=== PATIENT | female | born 1975 | race African-American/Black ===

== ENCOUNTER 2017-01-15 22:40 | Emergency (ER) | payer MEDICAID, OTHER ==
[2017-01-16 00:06] VITALS: BP 141/95
[2017-01-16] MEDS ORDERED: KEFLEX PO ONE (04:01)
[2017-01-16] MEDS ORDERED: RIFADIN PO STA (04:01)
[2017-01-16] MEDS ORDERED: MOTRIN PO ONE (04:01)
[2017-01-16] MEDS ORDERED: ROXICODONE PO ONE (04:01)
--- NOTE | 2017-01-16 04:04 | Emergency Department Report ---
ED Lower Extremity HPI - General Chief Complaint: Animal Bite Stated Complaint: LEFT LEG OPEN WOUND/POSS INFECTION Time Seen by Provider: 01/16/17 03:52 Source: patient, RN notes reviewed Mode of arrival: Ambulatory Limitations: No Limitations - History of Present Illness Initial Comments: This is a 41-year-old female. She was previously unknown to me. The patient is currently breast-feeding. She presents to the ER with left lateral thigh redness, pain, swelling. It is located on the left proximal lateral thigh. There is no trauma. She is up-to-date with tetanus vaccinations. The pain is sharp and achy. It increases with palpation, decreases with rest. No mechanism of injury that she is previously aware of. MD Complaint: thigh injury -: Gradual, days(s) Injury: Thigh: Left Type of Injury: unknown Improves With: rest Worsens With: movement, palpation Associated Symptoms: swelling - Related Data Previous Rx's Medication Instructions Recorded Last Taken Type HYDROcodone/APAP 5-325 [[place] 1 - 2 each PO Q6HR PRN #14 tablet 07/29/14 Unknown Rx 5/325] Ibuprofen [Motrin 800 MG tab] 800 mg PO Q8H PRN #20 tablet 07/29/14 Unknown Rx Levofloxacin [Levaquin] 500 mg PO QDAY #7 tablet 07/29/14 Unknown Rx Amoxicillin/K Clav Tab [Augmentin 1 each PO Q12HR #14 tablet 05/07/15 Unknown Rx 500 MG TAB] Antipyrine/Benzocaine 10 ml OT TID #1 bottle 05/07/15 Unknown Rx [Antipyrine-Benzocaine Ear Drop] traMADol [Ultram] 50 mg PO Q6HR PRN #12 tablet 05/07/15 Unknown Rx Ibuprofen [Motrin 600 MG tab] 600 mg PO Q8H PRN #30 tablet 08/08/16 Unknown Rx Multivitamin with Iron 1 each PO DAILY #30 tablet 08/08/16 Unknown Rx [Multivitamins with Iron] oxyCODONE /ACETAMINOPHEN [Percocet 1 tab PO Q6HR PRN #30 tablet 08/08/16 Unknown Rx 5/325] Cephalexin [Keflex] 500 mg PO Q6HR #28 capsule 01/16/17 Unknown Rx Rifampin [Rifadin] 600 mg PO QDAY #7 cap 01/16/17 Unknown Rx Allergies Allergy/AdvReac Type Severity Reaction Status Date / Time No Known Allergies Allergy Verified 09/06/13 13:01 ED Review of Systems ROS: Stated complaint: LEFT LEG OPEN WOUND/POSS INFECTION Other details as noted in HPI Constitutional: denies: fever Eyes: denies: vision change ENT: denies: epistaxis Respiratory: denies: cough Cardiovascular: denies: chest pain Gastrointestinal: denies: abdominal pain Musculoskeletal: myalgia Skin: lesions Neurological: denies: weakness ED Past Medical Hx - Past Medical History Previous Medical History?: Yes Hx Hypertension: Yes (gestational) Hx Congestive Heart Failure: No Hx Diabetes: No Hx Deep Vein Thrombosis: No Hx Renal Disease: No Hx Sickle Cell Disease: No Hx Seizures: No Hx Asthma: No Hx COPD: No Hx HIV: No - Surgical History Past Surgical History?: Yes Additional Surgical History: x 2013. left first digit partial amputation - Social History Smoking Status: Never Smoker Substance Use Type: None - Medications Home Medications: Home Medications Medication Instructions Recorded Confirmed Last Taken Type HYDROcodone/APAP 5-325 [[place] 1 - 2 each PO Q6HR PRN #14 tablet 07/29/14 Unknown Rx 5/325] Ibuprofen [Motrin 800 MG tab] 800 mg PO Q8H PRN #20 tablet 07/29/14 Unknown Rx Levofloxacin [Levaquin] 500 mg PO QDAY #7 tablet 07/29/14 Unknown Rx Amoxicillin/K Clav Tab [Augmentin 1 each PO Q12HR #14 tablet 05/07/15 Unknown Rx 500 MG TAB] Antipyrine/Benzocaine 10 ml OT TID #1 bottle 05/07/15 Unknown Rx [Antipyrine-Benzocaine Ear Drop] traMADol [Ultram] 50 mg PO Q6HR PRN #12 tablet 05/07/15 Unknown Rx Ibuprofen [Motrin 600 MG tab] 600 mg PO Q8H PRN #30 tablet 08/08/16 Unknown Rx Multivitamin with Iron 1 each PO DAILY #30 tablet 08/08/16 Unknown Rx [Multivitamins with Iron] oxyCODONE /ACETAMINOPHEN [Percocet 1 tab PO Q6HR PRN #30 tablet 08/08/16 Unknown Rx 5/325] Cephalexin [Keflex] 500 mg PO Q6HR #28 capsule 01/16/17 Unknown Rx Rifampin [Rifadin] 600 mg PO QDAY #7 cap 01/16/17 Unknown Rx ED Physical Exam - General Limitations: No Limitations General appearance: alert, in no apparent distress - Head Head exam: Present: atraumatic, normocephalic - Eye Eye exam: Present: normal appearance, EOMI. Absent: nystagmus - ENT ENT exam: Present: normal exam, normal orophraynx, mucous membranes moist, normal external ear exam - Neck Neck exam: Present: normal inspection, full ROM. Absent: tenderness, meningismus - Respiratory Respiratory exam: Present: normal lung sounds bilaterally. Absent: respiratory distress, wheezes, rales, rhonchi, stridor, chest wall tenderness, accessory muscle use, decreased breath sounds, prolonged expiratory - Cardiovascular Cardiovascular Exam: Present: regular rate, normal rhythm, normal heart sounds. Absent: bradycardia, tachycardia, irregular rhythm, systolic murmur, diastolic murmur, rubs, gallop - GI/Abdominal GI/Abdominal exam: Present: soft, normal bowel sounds. Absent: distended, tenderness, guarding, rebound, rigid, pulsatile mass - Extremities Exam Extremities exam: Present: full ROM, tenderness (on the left lateral thigh, there is a well-circumscribed area of erythema, approximately 6 x 6 cm. It is indurated and tender. The compartments are soft. There is no palpable cords distally. 2+ pulses noted infarction. There is no fluctuance.), normal capillary refill. Absent: pedal edema, joint swelling, calf tenderness - Back Exam Back exam: Present: normal inspection, full ROM. Absent: tenderness, CVA tenderness (R), CVA tenderness (L), muscle spasm, paraspinal tenderness, vertebral tenderness - Neurological Exam Neurological exam: Present: alert, oriented X3, normal gait, other (Extraocular movements intact. Tongue midline. No facial droop. Facial sensation intact to light touch in the V1, V2, V3 distribution bilaterally. 5 and 5 strength in 4 extremities.. Sensation is intact to light touch in 4 extremities.). Absent : motor sensory deficit - Psychiatric Psychiatric exam: Present: normal affect, normal mood - Skin Skin exam: Present: warm, normal color, rash, erythema ED Course Vital Signs 01/16/17 00:01 Temperature 98.3 F Pulse Rate 90 Respiratory 20 Rate Blood Pressure 141/95 O2 Sat by Pulse 98 Oximetry - Reevaluation(s) Reevaluation #1: 01/16/17 04:25 differential diagnosis: Left lateral thigh cellulitis Assessment and plan: 41-year-old female with simple thigh cellulitis. Compartments are soft. No abscess clinically. Afebrile, tolerating liquid feeds, she is currently breast-feeding. The cellulitis is marked with a skin marker. The patient will be discharged with Keflex and rifampin. She is instructed to follow-up in 48-72 hours for a repeat examination. ED Lower Extremity MDM - Lab Data Vital Signs 01/16/17 00:01 Temperature 98.3 F Pulse Rate 90 Respiratory 20 Rate Blood Pressure 141/95 O2 Sat by Pulse 98 Oximetry Critical care attestation.: If time is entered above; I have spent that time in minutes in the direct care of this critically ill patient, excluding procedure time. ED Disposition Clinical Impression: Cellulitis of left thigh Disposition: DISCHARGED TO HOME OR SELFCARE Is pt being admited?: No Does the pt Need Aspirin: No Condition: Stable Instructions: Cellulitis (ED) Additional Instructions: Physical exam is suggestive of left lateral thigh infection/cellulitis. Apply warm compresses to the affected area. Take Tylenol every 4 hours, alternating with ibuprofen every 6 hours as needed for pain. Take the antibiotics as directed. Follow up in 48-72 hours for repeat physical examination. Return to the ER right away with new pain, worsened pain, migration of pain, streaking, fevers, intractable nausea or vomiting, inability to tolerate liquid feeds. At this point in time, the physical examination is not consistent with an abscess, and at this point in time does not require incision and drainage. Depending on how you do with antibiotics, you may require incision and drainage in the future. Referrals: TEOFILO WINKLER MD [Primary Care Provider] - 3-5 Days NITA SEGUNDO MD [Staff Physician] - 3-5 Days [facility] [Provider Group] - 3-5 Days
== END 2017-01-16 04:35 | disposition home or self-care (01) ==
LOC: ED 22:40
DX: L03.116 Cellulitis of left lower limb (principal)
CPT/HCPCS: 99281

== ENCOUNTER 2019-03-13 04:23 | Emergency (ER) | payer OTHER ==
[2019-03-13] MEDS ORDERED: IBUPROFEN PO ONE ×3 (04:34→04:44)
--- NOTE | 2019-03-13 05:13 | XRay Report ---
RIGHT FOOT 3 VIEWS INDICATION: Right foot pain after trauma. COMPARISON: No relevant prior imaging study available. FINDINGS: There is a minimally displaced fracture at the base of the fifth metatarsal. This is most likely an a vulsion-type fracture. No additional fractures are seen. No degenerative changes. No foreign bodies. IMPRESSION: 1. Minimally displaced fracture at the base of the fifth metatarsal. This is most likely an avulsion type mechanism. Signer Name: Kushal Eddy MD Signed: 03/13/2019 5:09 AM Workstation Name: [id number]
--- NOTE | 2019-03-13 08:22 | Emergency Department Report ---
ED Lower Extremity HPI - General Chief Complaint: Extremity Injury, Lower Stated Complaint: FOOT SWELLING Time Seen by Provider: 03/13/19 07:09 Source: patient Mode of arrival: Ambulatory Limitations: No Limitations - History of Present Illness Initial Comments: This is a 43-year-old female nontoxic, well nourished in appearance, no acute signs of distress presents to the ED with c/o of left foot pain 1 day. Patient stated that she tripped and fell onto foot yesterday. Patient denies any other trauma. Patient denies any numbness, tingling, fever, chills, nausea, vomiting, chest pain, shortness of breath, headache, stiff neck. Patient denies any joint swelling or joint redness. Patient denies decreased range of motion. Patient stated has decreased gait due to pain. Patient denies any allergies or significant past medical history. MD Complaint: foot injury -: days(s) (1) Injury: Foot: Left Place: home Severity: mild Severity scale (0 -10): 8 Improves With: immobilization Worsens With: weight bearing, movement, palpation Associated Symptoms: swelling, unable to bear weight. denies: snap/pop sensation, numbness, tingling, able to partially bear weight, ambulatory - Related Data Previous Rx's Medication Instructions Recorded Last Taken Type HYDROcodone/APAP 5-325 [[place] 1 - 2 each PO Q6HR PRN #14 tablet 07/29/14 Unknown Rx 5/325] Ibuprofen [Motrin 800 MG tab] 800 mg PO Q8H PRN #20 tablet 07/29/14 Unknown Rx levoFLOXacin [Levaquin] 500 mg PO QDAY #7 tablet 07/29/14 Unknown Rx Amoxicillin/K Clav Tab [Augmentin 1 each PO Q12HR #14 tablet 05/07/15 Unknown Rx 500 MG TAB] Antipyrine/Benzocaine 10 ml OT TID #1 bottle 05/07/15 Unknown Rx [Antipyrine-Benzocaine Ear Drop] traMADol [Ultram] 50 mg PO Q6HR PRN #12 tablet 05/07/15 Unknown Rx Ibuprofen [Motrin 600 MG tab] 600 mg PO Q8H PRN #30 tablet 08/08/16 Unknown Rx Multivitamin with Iron 1 each PO DAILY #30 tablet 08/08/16 Unknown Rx [Multivitamins with Iron] oxyCODONE /ACETAMINOPHEN [Percocet 1 tab PO Q6HR PRN #30 tablet 08/08/16 Unknown Rx 5/325] cephALEXin [Keflex] 500 mg PO Q6HR #28 capsule 01/16/17 Unknown Rx rifAMPin [Rifadin] 600 mg PO QDAY #7 cap 01/16/17 Unknown Rx Acetaminophen/Codeine [Tylenol 1 tab PO Q6H PRN #12 tab 03/13/19 Unknown Rx /Codeine # 3 tab] Ibuprofen [Motrin] 600 mg PO Q8H PRN #20 tablet 03/13/19 Unknown Rx Allergies Allergy/AdvReac Type Severity Reaction Status Date / Time No Known Allergies Allergy Verified 09/06/13 13:01 ED Review of Systems ROS: Stated complaint: FOOT SWELLING Other details as noted in HPI Constitutional: denies: chills, fever Eyes: denies: eye pain, eye discharge, vision change ENT: denies: ear pain, throat pain Respiratory: denies: cough, shortness of breath, wheezing Cardiovascular: denies: chest pain, palpitations Endocrine: no symptoms reported Gastrointestinal: denies: abdominal pain, nausea, diarrhea Genitourinary: denies: urgency, dysuria, discharge Musculoskeletal: denies: back pain, joint swelling, arthralgia Skin: denies: rash, lesions Neurological: denies: headache, weakness, paresthesias Psychiatric: denies: anxiety, depression Hematological/Lymphatic: denies: easy bleeding, easy bruising ED Past Medical Hx - Past Medical History Hx Hypertension: Yes (gestational) Hx Congestive Heart Failure: No Hx Diabetes: No Hx Deep Vein Thrombosis: No Hx Renal Disease: No Hx Sickle Cell Disease: No Hx Seizures: No Hx Asthma: No Hx COPD: No Hx HIV: No - Surgical History Additional Surgical History: x 2, 2013, 2015. left first digit partial amputation - Social History Smoking Status: Never Smoker - Medications Home Medications: Home Medications Medication Instructions Recorded Confirmed Last Taken Type HYDROcodone/APAP 5-325 [[place] 1 - 2 each PO Q6HR PRN #14 tablet 07/29/14 Unknown Rx 5/325] Ibuprofen [Motrin 800 MG tab] 800 mg PO Q8H PRN #20 tablet 07/29/14 Unknown Rx levoFLOXacin [Levaquin] 500 mg PO QDAY #7 tablet 07/29/14 Unknown Rx Amoxicillin/K Clav Tab [Augmentin 1 each PO Q12HR #14 tablet 05/07/15 Unknown Rx 500 MG TAB] Antipyrine/Benzocaine 10 ml OT TID #1 bottle 05/07/15 Unknown Rx [Antipyrine-Benzocaine Ear Drop] traMADol [Ultram] 50 mg PO Q6HR PRN #12 tablet 05/07/15 Unknown Rx Ibuprofen [Motrin 600 MG tab] 600 mg PO Q8H PRN #30 tablet 08/08/16 Unknown Rx Multivitamin with Iron 1 each PO DAILY #30 tablet 08/08/16 Unknown Rx [Multivitamins with Iron] oxyCODONE /ACETAMINOPHEN [Percocet 1 tab PO Q6HR PRN #30 tablet 08/08/16 Unknown Rx 5/325] cephALEXin [Keflex] 500 mg PO Q6HR #28 capsule 01/16/17 Unknown Rx rifAMPin [Rifadin] 600 mg PO QDAY #7 cap 01/16/17 Unknown Rx Acetaminophen/Codeine [Tylenol 1 tab PO Q6H PRN #12 tab 03/13/19 Unknown Rx /Codeine # 3 tab] Ibuprofen [Motrin] 600 mg PO Q8H PRN #20 tablet 03/13/19 Unknown Rx ED Physical Exam - General Limitations: No Limitations General appearance: alert, in no apparent distress - Head Head exam: Present: atraumatic, normocephalic - Extremities Exam Extremities exam: Present: full ROM, tenderness, normal capillary refill. Absent: joint swelling - Expanded Lower Extremity Exam Right Hip exam: Present: normal inspection, full ROM. Absent: tenderness, swelling Upper Leg exam: Present: normal inspection, full ROM. Absent: tenderness, swelling Knee exam: Present: normal inspection, full ROM. Absent: tenderness, swelling Lower Leg exam: Present: normal inspection, full ROM. Absent: tenderness, swelling Ankle exam: Present: full ROM, tenderness, swelling. Absent: abrasion, laceration, ecchymosis, deformity, crepidus, dislocation, erythema, anterior draw sign Foot/Toe exam: Present: full ROM, tenderness, swelling, ecchymosis. Absent: abrasion, laceration, deformity, crepidus, dislocation, erythema, amputation, puncture wound, foreign body, calcaneal tenderness, tenderness at base of 5th metatarsal, nail avulsion, subungual hematoma Neuro vascular tendon exam: Present: no vascular compromise Gait: Positive: unable to bear weight - Back Exam Back exam: Present: normal inspection, full ROM. Absent: tenderness, CVA tenderness (R), CVA tenderness (L), muscle spasm, paraspinal tenderness, vertebral tenderness, rash noted - Neurological Exam Neurological exam: Present: alert, oriented X3 - Psychiatric Psychiatric exam: Present: normal affect, normal mood - Skin Skin exam: Present: warm, dry, intact, normal color. Absent: rash - Other Other exam information: Negative Dumont test of right Achilles tendon. ED Course Vital Signs 03/13/19 03/13/19 04:26 04:30 Temperature 97.3 F L 97.3 F L Pulse Rate 72 72 Respiratory 18 18 Rate Blood Pressure 120/70 120/70 O2 Sat by Pulse 99 99 Oximetry - Reevaluation(s) Reevaluation #1: 03/13/19 08:21 Patient is speaking in full sentences with no signs of distress noted. Reevaluation #2: 03/13/19 08:26 Post splint assessment: neurovasular intact; normal cap refill <2 second; normal sensation; denies decreaed sensation; normal ROM of digits. ED Lower Extremity MDM - Medical Decision Making This is a 43-year-old female that presents with right foot fracture. Patient is stable and was examined by me. I referred patient to an orthopedic doctor for further evaluation for possible MRI. X-ray has been obtained and dictated by the radiologist. Patient is notified of the x-ray report with noted by the patient. Patient has no tenderness and no joint swelling. No ecchymosis. no joint redness or swelling. Not warm to touch. No signs of cellulites present. Patient received a posterior short leg splint and crutches and was educated by RN had a use crutches. Patient was instructed to RICE therapy. Patient received Motrin for pain. Patient is discharged with Motrin. At time of discharge, the patient does not seem toxic or ill in appearance. No acute signs of distress noted. Patient agrees to discharge treatment plan of care. No further questions noted by the patient. Critical care attestation.: If time is entered above; I have spent that time in minutes in the direct care of this critically ill patient, excluding procedure time. ED Disposition Clinical Impression: Foot fracture, right Qualifiers: Encounter type: initial encounter Fracture type: closed Qualified Code(s): S92.901A - Unspecified fracture of right foot, initial encounter for closed fracture Disposition: DC-01 TO HOME OR SELFCARE Is pt being admited?: No Does the pt Need Aspirin: No Condition: Stable Instructions: Acetaminophen/Codeine (By mouth), Crutch Instructions (ED), Foot Fracture in Adults (ED), Splint Care (ED), RICE Therapy (ED) Additional Instructions: Follow-up with a orthopedic doctor in 3-5 days or if symptoms worsen and continue return to emergency room as soon as possible. Do not operate any machinery while taking Tylenol with codeine as this may cause drowsiness. Prescriptions: Ibuprofen [Motrin] 600 mg PO Q8H PRN #20 tablet PRN Reason: Pain Acetaminophen/Codeine [Tylenol /Codeine # 3 tab] 1 tab PO Q6H PRN #12 tab PRN Reason: Pain , Severe (7-10) [facility]: [facility] ARNULFO [Primary Care Provider] - 3-5 Days PRIMARY CAREMD [Referring] - 3-5 Days BRIANNA LEIGH MD [Staff Physician] - 3-5 Days [facility] [Outside] - 3-5 Days Forms: Work/School Release Form(ED)
[2019-03-13 08:52] VITALS: BP 134/82
== END 2019-03-13 08:52 | disposition home or self-care (01) ==
LOC: ED 04:23
DX: S92.901A Unspecified fracture of right foot, initial encounter for closed fracture (principal); I10 Essential (primary) hypertension; Z79.899 Other long term (current) drug therapy; W01.0XXA Fall on same level from slipping, tripping and stumbling without subsequent striking against object, initial encounter; Y93.89 Activity, other specified; Y92.89 Other specified places as the place of occurrence of the external cause; Y99.8 Other external cause status

== ENCOUNTER 2019-03-22 06:24 | Emergency (ER) | payer SELFPAY ==
[2019-03-22 06:49] VITALS: BP 130/87
--- NOTE | 2019-03-22 08:53 | Emergency Department Report ---
ED General Adult HPI - General Chief complaint: Extremity Injury, Lower Stated complaint: RT FOOT INJURY Time Seen by Provider: 03/22/19 08:35 Source: patient Mode of arrival: Wheelchair Limitations: No Limitations - History of Present Illness Initial comments: 43-year-old female since the ED for evaluation of foot fracture. This was seen one week ago and diagnosed with a minimally displaced fracture of the base of the fifth metatarsal of the right foot. Splint was placed at that time. Patient was advised to follow up with ortho, however [facility] has been unable to due to finances. [facility] first appt at [facility] is in May. Patient requests that a cast be placed in ED, also request a refill on pain medications. -: week(s) (1) Location: right, lower extremity Quality: aching Consistency: intermittent Improves with: none Worsens with: none Associated Symptoms: denies other symptoms - Related Data Previous Rx's Medication Instructions Recorded Last Taken Type HYDROcodone/APAP 5-325 [[place] 1 - 2 each PO Q6HR PRN #14 tablet 07/29/14 Unknown Rx 5/325] Ibuprofen [Motrin 800 MG tab] 800 mg PO Q8H PRN #20 tablet 07/29/14 Unknown Rx levoFLOXacin [Levaquin] 500 mg PO QDAY #7 tablet 07/29/14 Unknown Rx Amoxicillin/K Clav Tab [Augmentin 1 each PO Q12HR #14 tablet 05/07/15 Unknown Rx 500 MG TAB] Antipyrine/Benzocaine 10 ml OT TID #1 bottle 05/07/15 Unknown Rx [Antipyrine-Benzocaine Ear Drop] traMADol [Ultram] 50 mg PO Q6HR PRN #12 tablet 05/07/15 Unknown Rx Ibuprofen [Motrin 600 MG tab] 600 mg PO Q8H PRN #30 tablet 08/08/16 Unknown Rx Multivitamin with [place] 1 each PO DAILY #30 tablet 08/08/16 Unknown Rx [Multivitamins with Iron] oxyCODONE /ACETAMINOPHEN [Percocet 1 tab PO Q6HR PRN #30 tablet 08/08/16 Unknown Rx 5/325] cephALEXin [Keflex] 500 mg PO Q6HR #28 capsule 01/16/17 Unknown Rx rifAMPin [Rifadin] 600 mg PO QDAY #7 cap 01/16/17 Unknown Rx Acetaminophen/Codeine [Tylenol 1 tab PO Q6H PRN #12 tab 03/13/19 Unknown Rx /Codeine # 3 tab] Ibuprofen [Motrin] 600 mg PO Q8H PRN #20 tablet 03/13/19 Unknown Rx Naproxen [Naprosyn] 500 mg PO BID #20 tablet 03/22/19 Unknown Rx traMADol [Ultram] 50 mg PO Q6HR PRN #10 tablet 03/22/19 Unknown Rx Allergies Allergy/AdvReac Type Severity Reaction Status Date / Time No Known Allergies Allergy Verified 09/06/13 13:01 ED Review of Systems ROS: Stated complaint: RT FOOT INJURY Other details as noted in HPI Comment: All other systems reviewed and negative Musculoskeletal: as per HPI ED Past Medical Hx - Past Medical History Previous Medical History?: Yes Hx Hypertension: Yes (gestational) Hx Congestive Heart Failure: No Hx Diabetes: No Hx Deep Vein Thrombosis: No Hx Renal Disease: No Hx Sickle Cell Disease: No Hx Seizures: No Hx Asthma: No Hx COPD: No Hx HIV: No - Surgical History Past Surgical History?: Yes Additional Surgical History: x 2, 2013, 2015. left first digit partial amputation - Social History Smoking Status: Never Smoker - Medications Home Medications: Home Medications Medication Instructions Recorded Confirmed Last Taken Type HYDROcodone/APAP 5-325 [[place] 1 - 2 each PO Q6HR PRN #14 tablet 07/29/14 Unknown Rx 5/325] Ibuprofen [Motrin 800 MG tab] 800 mg PO Q8H PRN #20 tablet 07/29/14 Unknown Rx levoFLOXacin [Levaquin] 500 mg PO QDAY #7 tablet 07/29/14 Unknown Rx Amoxicillin/K Clav Tab [Augmentin 1 each PO Q12HR #14 tablet 05/07/15 Unknown Rx 500 MG TAB] Antipyrine/Benzocaine 10 ml OT TID #1 bottle 05/07/15 Unknown Rx [Antipyrine-Benzocaine Ear Drop] traMADol [Ultram] 50 mg PO Q6HR PRN #12 tablet 05/07/15 Unknown Rx Ibuprofen [Motrin 600 MG tab] 600 mg PO Q8H PRN #30 tablet 08/08/16 Unknown Rx Multivitamin with [place] 1 each PO DAILY #30 tablet 08/08/16 Unknown Rx [Multivitamins with Iron] oxyCODONE /ACETAMINOPHEN [Percocet 1 tab PO Q6HR PRN #30 tablet 08/08/16 Unknown Rx 5/325] cephALEXin [Keflex] 500 mg PO Q6HR #28 capsule 01/16/17 Unknown Rx rifAMPin [Rifadin] 600 mg PO QDAY #7 cap 01/16/17 Unknown Rx Acetaminophen/Codeine [Tylenol 1 tab PO Q6H PRN #12 tab 03/13/19 Unknown Rx /Codeine # 3 tab] Ibuprofen [Motrin] 600 mg PO Q8H PRN #20 tablet 03/13/19 Unknown Rx Naproxen [Naprosyn] 500 mg PO BID #20 tablet 03/22/19 Unknown Rx traMADol [Ultram] 50 mg PO Q6HR PRN #10 tablet 03/22/19 Unknown Rx ED Physical Exam - General Limitations: No Limitations General appearance: alert, in no apparent distress - Head Head exam: Present: atraumatic, normocephalic - Eye Eye exam: Present: normal appearance - ENT ENT exam: Present: mucous membranes moist - Neck Neck exam: Present: normal inspection - Respiratory Respiratory exam: Present: normal lung sounds bilaterally. Absent: respiratory distress - Cardiovascular Cardiovascular Exam: Present: regular rate, normal rhythm - GI/Abdominal GI/Abdominal exam: Absent: distended - Extremities Exam Extremities exam: Present: other (splint in place to right foot and ankle) - Neurological Exam Neurological exam: Present: alert, oriented X3. Absent: motor sensory deficit - Psychiatric Psychiatric exam: Present: normal affect, normal mood - Skin Skin exam: Present: warm, dry, intact, normal color ED Course Vital Signs 03/22/19 06:42 Temperature 98.2 F Pulse Rate 84 Respiratory 20 Rate Blood Pressure 130/87 O2 Sat by Pulse 100 Oximetry ED Medical Decision Making - Radiology Data Radiology results: report reviewed, image reviewed - Medical Decision Making Outpatient follow-up is advised. - Differential Diagnosis fracture Critical care attestation.: If time is entered above; I have spent that time in minutes in the direct care of this critically ill patient, excluding procedure time. ED Disposition Clinical Impression: Fracture of metatarsal of right foot, closed Disposition: DC-01 TO HOME OR SELFCARE Is pt being admited?: No Condition: Stable Instructions: Foot Fracture in Adults (ED) Prescriptions: Naproxen [Naprosyn] 500 mg PO BID #20 tablet traMADol [Ultram] 50 mg PO Q6HR PRN #10 tablet PRN Reason: Pain Referrals: BRIANNA LEIGH MD [Primary Care Provider] - 3-5 Days [facility] [Provider Group] - 3-5 Days Time of Disposition: 08:53
--- NOTE | 2019-03-22 09:08 | XRay Report ---
RIGHT FOOT, 3 VIEWS INDICATION: Right foot pain, right foot was splinted 2 weeks ago. COMPARISON: 03/13/2019 IMPRESSION: A posterior splint has been applied which mildly degrades bony detail. The nondisplaced fracture at the base of the fifth metatarsal is unchanged in position and alignment since 03/13/2019. No calcified callus is appreciated at this time. The remaining bony structures are within normal limi ts. No joint pathology. There is moderate soft tissue swelling on the dorsum of the foot. Signer Name: Dalton Matos Jr, MD Signed: 03/22/2019 9:03 AM Workstation Name: [id number]
== END 2019-03-22 09:19 | disposition home or self-care (01) ==
LOC: ED 06:24
DX: S92.301A Fracture of unspecified metatarsal bone(s), right foot, initial encounter for closed fracture (principal); I10 Essential (primary) hypertension; Z79.1 Long term (current) use of non-steroidal anti-inflammatories (NSAID); Z79.899 Other long term (current) drug therapy; W22.8XXA Striking against or struck by other objects, initial encounter; Y93.89 Activity, other specified; Y92.488 Other paved roadways as the place of occurrence of the external cause; Y99.8 Other external cause status

== ENCOUNTER 2019-05-15 06:26 | Emergency (ER) | payer SELFPAY ==
--- NOTE | 2019-05-15 07:30 | XRay Report ---
RIGHT FOOT 3 VIEWS 0700 INDICATION: Right foot broken 2 months ago COMPARISON: 03/22/2019 FINDINGS: Images were obtained in a fiberglass splint. The previous fracture of the base of the fifth metatarsal is again noted with bone resorption along the fracture line rather than obvious healing. Possibly there is a small amount of union but a large amount of nonunion is seen. The fragment is mil dly distracted proximally. No new fractures or dislocations are seen. Signer Name: Josh Reynolds MD Signed: 05/15/2019 7:25 AM Workstation Name: [id number]
[2019-05-15] MEDS ORDERED: PERCOCET 5/325 PO ONE (07:56)
--- NOTE | 2019-05-15 07:56 | Emergency Department Report ---
ED Extremity Problem HPI - General Chief complaint: Extremity Injury, Lower Stated complaint: RIGHT FOOT PAIN Time Seen by Provider: 05/15/19 07:07 Source: patient Mode of arrival: Ambulatory Limitations: No Limitations, Physical Limitation - History of Present Illness Initial comments: Patient is a 43-year-old female who presents to the emergency room with complaints of right foot pain since 03/13/19. the patient states she is here to have her "foot checked." She was evaluated in the emergency room on 03/13/19 and diagnosed with a fracture of the fifth metatarsal. Patient states she was unable to see the orthopedic doctor due to financial reasons. She has been in a posterior splint and on crutches since the incident. She denies any numbness or weakness. - Related Data Previous Rx's Medication Instructions Recorded Last Taken Type HYDROcodone/APAP 5-325 [Ellsworth 1 - 2 each PO Q6HR PRN #14 tablet 07/29/14 Unknown Rx 5/325] Ibuprofen [Motrin 800 MG tab] 800 mg PO Q8H PRN #20 tablet 07/29/14 Unknown Rx levoFLOXacin [Levaquin] 500 mg PO QDAY #7 tablet 07/29/14 Unknown Rx Amoxicillin/K Clav Tab [Augmentin 1 each PO Q12HR #14 tablet 05/07/15 Unknown Rx 500 MG TAB] Antipyrine/Benzocaine 10 ml OT TID #1 bottle 05/07/15 Unknown Rx [Antipyrine-Benzocaine Ear Drop] traMADol [Ultram] 50 mg PO Q6HR PRN #12 tablet 05/07/15 Unknown Rx Ibuprofen [Motrin 600 MG tab] 600 mg PO Q8H PRN #30 tablet 08/08/16 Unknown Rx Multivitamin with Iron 1 each PO DAILY #30 tablet 08/08/16 Unknown Rx [Multivitamins with Iron] oxyCODONE /ACETAMINOPHEN [Percocet 1 tab PO Q6HR PRN #30 tablet 08/08/16 Unknown Rx 5/325] cephALEXin [Keflex] 500 mg PO Q6HR #28 capsule 01/16/17 Unknown Rx rifAMPin [Rifadin] 600 mg PO QDAY #7 cap 01/16/17 Unknown Rx Acetaminophen/Codeine [Tylenol 1 tab PO Q6H PRN #12 tab 03/13/19 Unknown Rx /Codeine # 3 tab] Ibuprofen [Motrin] 600 mg PO Q8H PRN #20 tablet 03/13/19 Unknown Rx traMADol [Ultram] 50 mg PO Q6HR PRN #10 tablet 03/22/19 Unknown Rx Naproxen [Naprosyn TAB] 500 mg PO BID PRN #14 tablet 05/15/19 Unknown Rx Allergies Allergy/AdvReac Type Severity Reaction Status Date / Time No Known Allergies Allergy Verified 09/06/13 13:01 ED Review of Systems ROS: Stated complaint: RIGHT FOOT PAIN Other details as noted in HPI Comment: All other systems reviewed and negative ED Past Medical Hx - Past Medical History Previous Medical History?: Yes Hx Hypertension: Yes (gestational) Hx Congestive Heart Failure: No Hx Diabetes: No Hx Deep Vein Thrombosis: No Hx Renal Disease: No Hx Sickle Cell Disease: No Hx Seizures: No Hx Asthma: No Hx COPD: No Hx HIV: No - Surgical History Past Surgical History?: Yes Additional Surgical History: x 2, 2013, 2015. left first digit partial amputation - Social History Smoking Status: Never Smoker - Medications Home Medications: Home Medications Medication Instructions Recorded Confirmed Last Taken Type HYDROcodone/APAP 5-325 [[place] 1 - 2 each PO Q6HR PRN #14 tablet 07/29/14 Unknown Rx 5/325] Ibuprofen [Motrin 800 MG tab] 800 mg PO Q8H PRN #20 tablet 07/29/14 Unknown Rx levoFLOXacin [Levaquin] 500 mg PO QDAY #7 tablet 07/29/14 Unknown Rx Amoxicillin/K Clav Tab [Augmentin 1 each PO Q12HR #14 tablet 05/07/15 Unknown Rx 500 MG TAB] Antipyrine/Benzocaine 10 ml OT TID #1 bottle 05/07/15 Unknown Rx [Antipyrine-Benzocaine Ear Drop] traMADol [Ultram] 50 mg PO Q6HR PRN #12 tablet 05/07/15 Unknown Rx Ibuprofen [Motrin 600 MG tab] 600 mg PO Q8H PRN #30 tablet 08/08/16 Unknown Rx Multivitamin with Iron 1 each PO DAILY #30 tablet 08/08/16 Unknown Rx [Multivitamins with Iron] oxyCODONE /ACETAMINOPHEN [Percocet 1 tab PO Q6HR PRN #30 tablet 08/08/16 Unkn own Rx 5/325] cephALEXin [Keflex] 500 mg PO Q6HR #28 capsule 01/16/17 Unknown Rx rifAMPin [Rifadin] 600 mg PO QDAY #7 cap 01/16/17 Unknown Rx Acetaminophen/Codeine [Tylenol 1 tab PO Q6H PRN #12 tab 03/13/19 Unknown Rx /Codeine # 3 tab] Ibuprofen [Motrin] 600 mg PO Q8H PRN #20 tablet 03/13/19 Unknown Rx traMADol [Ultram] 50 mg PO Q6HR PRN #10 tablet 03/22/19 Unknown Rx Naproxen [Naprosyn TAB] 500 mg PO BID PRN #14 tablet 05/15/19 Unknown Rx ED Physical Exam - General Limitations: No Limitations, Physical Limitation General appearance: alert, in no apparent distress - Head Head exam: Present: atraumatic, normocephalic - ENT ENT exam: Present: mucous membranes moist - Back Exam Back exam: Present: other (posterior splint in place on the right foot, TTP over the right lateral foot, able to move the toes without difficulty, brisk cap refill) - Neurological Exam Neurological exam: Present: alert, oriented X3 - Psychiatric Psychiatric exam: Present: normal affect, normal mood - Skin Skin exam: Present: warm, dry, intact ED Course Vital Signs 05/15/19 06:37 Temperature 98.1 F Pulse Rate 84 Respiratory 16 Rate Blood Pressure 159/90 O2 Sat by Pulse 100 Oximetry ED Medical Decision Making - Radiology Data Radiology results: report reviewed RIGHT FOOT 3 VIEWS 0700 INDICATION: Right foot broken 2 months ago COMPARISON: 03/22/2019 FINDINGS: Images were obtained in a fiberglass splint. The previous fracture of the base of the fifth metatarsal is again noted with bone resorption along the fracture line rather than obvious healing. Possibly there is a small amount of union but a large amount of nonunion is seen. The fragment is mildly distracted proximally. No new fractures or dislocations are s een. Signer Name: Josh Reynolds MD Signed: 05/15/2019 7:25 AM Workstation Name: [id number] Transcribed By: JOSE MARIA Dictated By: Josh Reynolds MD Electronically Authenticated By: Josh Reynolds MD Signed Date/Time: 05/15/19 0725 - Medical Decision Making Patient is a 43-year-old female who presents to the emergency room with complaints of right foot pain since 03/13/19. the patient states she is here to have her "foot checked." She was evaluated in the emergency room on 03/13/19 and diagnosed with a fracture of the fifth metatarsal. Patient states she was unab le to see the orthopedic doctor due to financial reasons. She has been in a posterior splint and on crutches since the incident. She denies any numbness or weakness. on exam: posterior splint in place on the right foot, TTP over the right lateral foot, able to move the toes without difficulty, brisk cap refill. XR right foot: Images were obtained in a fiberglass splint. The previous fracture of the base of the fifth metatarsal is again noted with bone resorption along the fracture line rather than obvious healing. Possibly there is a small amount of union but a large amount of nonunion is seen. The fragment is mildly distracted proximally. No new fractures or dislocations are seen. discussed XR findings with patient and that there is nonunion present. discussed with pt the importance of following up with an orthopedic doctor to prevent permanent disability or further complications. pt given two orthopedic groups in the area. pts pain treated while in the ED. given prescription for naproxen. advised pt to take medication as prescribed as needed. elevate the leg. follow up with an orthopedic doctor in the next 2-3 days to prevent disability. return to the emergency room for any new or worsening symptoms. - Differential Diagnosis fx, nounion, malunion, arthritis Critical care attestation.: If time is entered above; I have spent that time in minutes in the direct care of this critically ill patient, excluding procedure time. 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 elevate the leg. follow up with an orthopedic doctor in the next 2-3 days to prevent disability. return to the emergency room for any new or worsening symptoms. Prescriptions: Naproxen [Naprosyn TAB] 500 mg PO BID PRN #14 tablet PRN Reason: pain Referrals: BRIANNA LEIGH MD [Staff Physician] - 2-3 Days [facility] [Provider Group] - 2-3 Days Time of Disposition: 07:58 Print Language: LAO
[2019-05-15 08:13] VITALS: BP 126/80
== END 2019-05-15 08:13 | disposition home or self-care (01) ==
LOC: ED 06:26
DX: S92.354K Nondisplaced fracture of fifth metatarsal bone, right foot, subsequent encounter for fracture with nonunion (principal); I10 Essential (primary) hypertension; Z98.890 Other specified postprocedural states; Z79.899 Other long term (current) drug therapy; Y92.89 Other specified places as the place of occurrence of the external cause